=== PATIENT | female | born 1950 | race Caucasian/White ===

== ENCOUNTER 2017-10-13 14:45 | Inpatient (IN) | payer SELFPAY ==
[~2017-10-13] VITALS: Ht 157.4 cm; Wt 72.8 kg
--- NOTE | ~2017-10-13 | EKG ---
[place], [place] ELECTROCARDIOGRAM REPORT NAME: PHILLIP JO UNIT #: [id number] ROOM: 412 DOCTOR: YAIR DRAFT REPORT BIRTHDATE: [birth year] [facility] Test Date: 2017-10-13 Test Time: 15:33:28 Pat Name: PHILLIP JO Department: Room: 412 Gender: F Quality Review Specialist: NADINE : 1950 Requested By: DAYANA OAKLEY Order Number: [id number] Reading MD: Justin Bourne MD Measurements Intervals [place] Rate: 92 P: 64 ID: [id number] QRS: 47 QRSD: 93 T: 62 QT: 371 QTc: 459 Interpretive Statements Sinus rhythm Borderline T abnormalities, lateral leads Baseline wander in lead(s) V4,V6 Electronically Signed On 10-14-2017 6:28:46 PDT by Justin Bourne MD CM:EKGRPT:ELECTROCARDIOGRAM REPORT [id number] DAYANA GALAVIZ DRAFT REPORT DAYANA OAKLEY DO
[2017-10-13 14:46] VITALS: BP 163/76
[2017-10-13 15:33] LABS: HEMATOCRIT 40.3 % (37.0-47.0); HEMOGLOBIN 12.4 g/dl (12.0-16.0); MEAN CELL VOLUME 85.7 fl (81.0-99.0); MEAN CORPUSCULAR HGB 26.4 pg (27.0-31.0); MEAN CORPUSCULAR HGB CONC 30.8 g/dl (33.0-37.0); MEAN PLATELET VOLUME 9.4 fl (9.6-12.3); PLATELET COUNT AUTOMATED 392 10*3/uL (130-400); RED CELL DISTRI WIDTH 14.6 % (0-14.5); WHITE BLOOD COUNT 25.1 10*3/uL (4.8-10.8)
[2017-10-13 15:49] LABS: ALBUMIN 3.6 gm/dl (3.1-4.5); ALKALINE PHOSPHATASE 159 U/L (45-117); BUN 14 mg/dl (7-24); CHLORIDE 103 mmol/L (98-107); CREATININE 0.92 mg/dL (0.55-1.02); LIPASE 53 U/L (73-393); POTASSIUM 4.3 mmol/L (3.5-5.1); SGOT/AST 9 IU/L (3-35); SGPT/ALT 15 U/L (12-78); SODIUM 137 mmol/L (136-145); TOTAL PROTEIN 7.9 gm/dL (6.4-8.2)
[2017-10-13 15:54] LABS: TROPONIN I < 0.015 ng/ml (<0.045)
[2017-10-13 15:56] LABS: BASOPHILS 1 % (0-1); PLATELET SUFFICIENCY NORMAL (NORMAL); TOTAL CELLS COUNTED 100 #CELLS
[2017-10-13] MEDS ORDERED: NIFEDIPINE ER90 M1 PO (16:21)
[2017-10-13] MEDS ORDERED: VITAMIN D50000 UNIT PO (16:22)
[2017-10-13] MEDS ORDERED: FUROSEMIDE20 M1 PO (16:22)
[2017-10-13] MEDS ORDERED: ALDACTONE25 M1 PO (16:22)
[2017-10-13] MEDS ORDERED: DOXAZOSIN MESYLA1 MG PO (16:23)
[2017-10-13] MEDS ORDERED: ZANTAC 150150 MG PO (16:23)
[2017-10-13] MEDS ORDERED: LIPITOR40 MG PO (16:24)
[2017-10-13] MEDS ORDERED: KLOR-CON M2020 ME1 PO (16:24)
[2017-10-13] MEDS ORDERED: METOPROLOL25 MG PO (16:25)
[2017-10-13 16:35] VITALS: BP 167/69
[2017-10-13 17:11] VITALS: BP 158/84; BP 166/84
[2017-10-13 20:00] VITALS: BP 158/68
[2017-10-14] VITALS: BP 142/69
[2017-10-14 03:44] LABS: HEMATOCRIT 36.2 % (37.0-47.0); HEMOGLOBIN 11.2 g/dl (12.0-16.0); MEAN CELL VOLUME 85.2 fl (81.0-99.0); MEAN CORPUSCULAR HGB 26.4 pg (27.0-31.0); MEAN CORPUSCULAR HGB CONC 30.9 g/dl (33.0-37.0); MEAN PLATELET VOLUME 9.4 fl (9.6-12.3); PLATELET COUNT AUTOMATED 331 10*3/uL (130-400); RED BLOOD COUNT 4.25 10*6/uL (4.10-5.10); RED CELL DISTRI WIDTH 14.9 % (0-14.5); WHITE BLOOD COUNT 19.8 10*3/uL (4.8-10.8)
[2017-10-14 03:54] LABS: ACT PARTIAL THROMBO TIME 25.6 SECONDS (20.8-31.5); INTERNATIONAL NORM RATIO 1.1 (2.0-3.5)
[2017-10-14 04:02] LABS: CREATININE 1.17 mg/dL (0.55-1.02)
[2017-10-14 04:03] LABS: PLATELET SUFFICIENCY NORMAL (NORMAL); TOTAL CELLS COUNTED 100 #CELLS
[2017-10-14 04:04] LABS: BURR CELLS FEW; POLYCHROMASIA SLIGHT
[2017-10-14 04:09] LABS: THYROID STIM HORMONE (HS) 0.388 uIU/ml (0.358-4.75)
[2017-10-14 04:11] LABS: POTASSIUM 3.3 mmol/L (3.5-5.1)
[2017-10-14 08:00] VITALS: BP 152/70
[2017-10-14 08:04] LABS: VITAMIN D, 25-HYDROXY 35.2 ng/mL (30-100)
[2017-10-14 12:00] VITALS: BP 152/69
[2017-10-14 16:00] VITALS: BP 149/67
[2017-10-14 20:00] VITALS: BP 160/70
[2017-10-15] VITALS: BP 157/73
[2017-10-15 05:53] LABS: BUN 11 mg/dl (7-24); CHLORIDE 115 mmol/L (98-107); CREATININE 0.66 mg/dL (0.55-1.02); POTASSIUM 3.9 mmol/L (3.5-5.1); SODIUM 144 mmol/L (136-145)
[2017-10-15 06:15] LABS: HEMOGLOBIN 10.1 g/dl (12.0-16.0); MEAN CELL VOLUME 85.3 fl (81.0-99.0); MEAN CORPUSCULAR HGB 26.1 pg (27.0-31.0); MEAN CORPUSCULAR HGB CONC 30.6 g/dl (33.0-37.0); MEAN PLATELET VOLUME 10.1 fl (9.6-12.3); PLATELET COUNT AUTOMATED 321 10*3/uL (130-400); RED BLOOD COUNT 3.87 10*6/uL (4.10-5.10); RED CELL DISTRI WIDTH 15.8 % (0-14.5)
[2017-10-15 07:08] LABS: TOTAL CELLS COUNTED 100 #CELLS
[2017-10-15 07:09] LABS: PLATELET SUFFICIENCY NORMAL (NORMAL); POLYCHROMASIA SLIGHT
[2017-10-15 08:00] VITALS: BP 160/72
[2017-10-15 12:00] VITALS: BP 166/68
[2017-10-15 16:00] VITALS: BP 184/80
[2017-10-15 20:00] VITALS: BP 172/80
[2017-10-16] VITALS: BP 175/85
[2017-10-16 06:33] LABS: BASO % 0.1 % (0.0-1.0); HEMATOCRIT 35.5 % (37.0-47.0); HEMOGLOBIN 11.2 g/dl (12.0-16.0); LYMPH % 5.9 % (27.0-41.0); MEAN CELL VOLUME 84.5 fl (81.0-99.0); MEAN CORPUSCULAR HGB 26.7 pg (27.0-31.0); MEAN CORPUSCULAR HGB CONC 31.5 g/dl (33.0-37.0); MEAN PLATELET VOLUME 10.4 fl (9.6-12.3); MONO # 0.7 10*3/uL (0.1-1.0); NEUT # 15.2 10*3/uL (2.3-7.9); NEUT % 89.3 % (47.0-73.0); PLATELET COUNT AUTOMATED 328 10*3/uL (130-400); RED CELL DISTRI WIDTH 15.7 % (0-14.5)
[2017-10-16 06:58] LABS: BUN 10 mg/dl (7-24); CHLORIDE 108 mmol/L (98-107); CREATININE 0.64 mg/dL (0.55-1.02); SODIUM 142 mmol/L (136-145)
[2017-10-16 08:00] VITALS: BP 174/82
[2017-10-16 12:00] VITALS: BP 154/48; BP 168/72
[2017-10-16] MEDS ORDERED: LEVAQUIN750 M1 PO (14:02)
[2017-10-16] MEDS ORDERED: PREDNISONE10 MG PO (14:02)
[2017-10-16] MEDS ORDERED: MUCINEX ER600 MG PO (14:02)
== END 2017-10-16 15:55 | disposition home or self-care (01) | DRG 871 ==
LOC: ED 14:45 → 4E 16:10 → EDHOLD 16:10 → 4E 16:20
PROVIDERS: Emergency Medicine; Internal Medicine
DX: A41.9 Sepsis, unspecified organism (principal); R65.21 Severe sepsis with septic shock; J18.9 Pneumonia, unspecified organism; J96.01 Acute respiratory failure with hypoxia; E87.2 Acidosis; K92.1 Melena; R73.9 Hyperglycemia, unspecified; R19.7 Diarrhea, unspecified; E78.5 Hyperlipidemia, unspecified; E55.9 Vitamin D deficiency, unspecified; E87.6 Hypokalemia; N18.2 Chronic kidney disease, stage 2 (mild); I12.9 Hypertensive chronic kidney disease with stage 1 through stage 4 chronic kidney disease, or unspecified chronic kidney disease; Z82.49 Family history of ischemic heart disease and other diseases of the circulatory system; Z83.3 Family history of diabetes mellitus; Z88.2 Allergy status to sulfonamides; Z79.899 Other long term (current) drug therapy; Z68.29 Body mass index [BMI] 29.0-29.9, adult

== ENCOUNTER → 2023-07-26 | Outpatient (CLI) | payer MEDICARE ==
[~2023-07-26] MED LIST: ALDACTONE25 M1 PO; DOXAZOSIN MESYLA1 MG PO; FUROSEMIDE20 M1 PO; KLOR-CON M2020 ME1 PO; LEVAQUIN750 M1 PO; LIPITOR40 MG PO; METOPROLOL25 MG PO; MUCINEX ER600 MG PO; NIFEDIPINE ER90 M1 PO; PREDNISONE10 MG PO; VITAMIN D50000 UNIT PO; ZANTAC 150150 MG PO
[2023-07-26 08:23] LABS: TOTAL PROTEIN 7.6 gm/dL (6.0-8.0)
== END | disposition home or self-care (01) ==
LOC: LAB 07:25
PROVIDERS: ATTEND Family Medicine
DX: I10 Essential (primary) hypertension (principal); E78.5 Hyperlipidemia, unspecified; R73.03 Prediabetes